=== PATIENT | male | born 1990 | race Caucasian/White ===

== ENCOUNTER 2021-07-05 12:23 | Inpatient (IN) | payer OTHER ==
[2021-07-05 15:00] VITALS: BMI 20.9
[2021-07-05] MEDS ORDERED: diazePAM 5 MG TABLET PO ONE (15:18)
[2021-07-05] MEDS ORDERED: MAGNESIUM HYDROX 2400MG/30ML ORAL SUSPENSION 30 ML CUP PO PRN (15:18)
[2021-07-05] MEDS ORDERED: ACETAMINOPHEN 325 MG TABLET (FP) PO PRN ×2 (15:18)
[2021-07-05] MEDS ORDERED: LOPERAMIDE HCL 2 MG CAPSULE PO PRN (15:18)
[2021-07-05] MEDS ORDERED: MAGNESIUM CITRATE 300 ML BOTTLE PO PRN (15:18)
[2021-07-05] MEDS ORDERED: NICOTINE POLACRILEX 2 MG GUM BUC PRN (15:18)
[2021-07-05] MEDS ORDERED: MELATONIN 5 MG TABLETS PO PRN (15:18)
[2021-07-05] MEDS ORDERED: BENZOCAINE/MENTHOL (CHLORASEPTIC ) LOZENGE MM PRN (15:18)
[2021-07-05] MEDS ORDERED: methaDONE HCL 10 MG TABLET (FOR DETOX USE ONLY) PO ONE (15:18)
[2021-07-05] MEDS ORDERED: MAG HYDROX/AL HYDROX/SIMETH 30 ML UNIT-DOSE CUP PO PRN (15:18)
[2021-07-05] MEDS ORDERED: DICYCLOMINE HCL 10 MG CAPSULE PO PRN (15:18)
[2021-07-05] MEDS ORDERED: cloNIDine HCL 0.1 MG TABLET PO PRN (15:18)
[2021-07-05] MEDS ORDERED: ONDANSETRON *ODT* 4 MG TABLET SL PRN (15:18)
[2021-07-05] MEDS ORDERED: IBUPROFEN 400 MG TABLET (FP) PO PRN ×2 (15:18→21:36)
[2021-07-05] MEDS ORDERED: BISMUTH SUBSALICYLATE 524 MG/30 ML PO PRN (15:18)
[2021-07-05] MEDS: METHOCARBAMOL 500 MG TABLET PO PRN ×2 (15:59→22:30)
[2021-07-05] MEDS: diazePAM 5 MG TABLET PO SCH ×2 (17:50→22:32)
[2021-07-05] MEDS: THIAMINE HCL 100 MG TABLET (FP) PO SCH (22:29)
[2021-07-06] MEDS: diazePAM 5 MG TABLET PO PRN ×2 (03:22→21:07)
[2021-07-06] MEDS: diazePAM 5 MG TABLET PO SCH ×4 (05:31→23:20)
[2021-07-06] MEDS ORDERED: methaDONE HCL 10 MG TABLET (FOR DETOX USE ONLY) ONE (09:31)
[2021-07-06] MEDS: PRENATAL VITAMINS W/ FOLIC ACID TABLET (FP) PO SCH (10:15)
[2021-07-06] MEDS: METHOCARBAMOL 500 MG TABLET PO PRN (10:17)
[2021-07-06] MEDS: NICOTINE 10 MG CARTRIDGE (INHALER) IH PRN ×2 (11:26→15:58)
[2021-07-06 12:35] LABS: HEMATOCRIT 45.4 % (35.4-49); HEMOGLOBIN 15.3 GM/dL (11.7-16.9); MCH 30.5 pg (25.7-33.7); MCHC 33.7 g/dl (32.0-35.9); MEAN CELL VOLUME 90.6 fl (80-96); MEAN PLT VOLUME 8.5 fl (7.5-11.1); PLATELET COUNT 245 10^3/uL (134-434); RDW 13.6 % (11.9-15.9); WHITE BLOOD COUNT 8.9 K/mm3 (4.0-10.0)
[2021-07-06 13:07] LABS: BLOOD UREA NITROGEN 7.7 mg/dL (7-18)
[2021-07-06 13:08] LABS: ALBUMIN 4.3 g/dl (3.4-5.0); CREATININE 0.9 mg/dL (0.55-1.3)
[2021-07-06 13:10] LABS: BILIRUBIN,TOTAL 0.5 mg/dL (0.2-1); CALCIUM 9.9 mg/dL (8.5-10.1); TOT PROT 7.8 g/dl (6.4-8.2)
[2021-07-06] MEDS: THIAMINE HCL 100 MG TABLET (FP) PO SCH (21:07)
[2021-07-06] MEDS ORDERED: MELATONIN 5 MG TABLETS PO SCH (22:00)
[2021-07-07] MEDS: diazePAM 5 MG TABLET PO SCH ×2 (05:45→13:15)
[2021-07-07] MEDS: METHOCARBAMOL 500 MG TABLET PO PRN ×2 (05:47→10:55)
[2021-07-07] MEDS ORDERED: methaDONE HCL 10 MG TABLET (FOR DETOX USE ONLY) PO ONE (10:00)
[2021-07-07] MEDS: PRENATAL VITAMINS W/ FOLIC ACID TABLET (FP) PO SCH (10:05)
[2021-07-07] MEDS: diazePAM 5 MG TABLET PO PRN (10:06)
[2021-07-07] MEDS: hydrOXYzine PAMOATE 25 MG CAPSULE (FP) PO PRN ×2 (10:06→13:16)
[2021-07-07] MEDS: NICOTINE 10 MG CARTRIDGE (INHALER) IH PRN (10:10)
[2021-07-07] MEDS ORDERED: NICOTINE 10 MG CARTRIDGE (INHALER) IH ONE (11:30)
[2021-07-07 16:08] LABS: SARS-CoV-2 NAA Not Detected (Not Detected)
[2021-07-07 17:19] VITALS: BP 113/66; PULSE 84; TEMP 98
[2021-07-07] MEDS ORDERED: SUVOREXANT 10 MG TABLET PO PRN (22:00)
[2021-07-08] MEDS ORDERED: diazePAM 5 MG TABLET PO SCH (06:00)
[2021-07-09] MEDS ORDERED: diazePAM 5 MG TABLET PO ONE (06:00)
[2021-07-09] MEDS ORDERED: methaDONE HCL 10 MG TABLET (FOR DETOX USE ONLY) PO ONE (10:00)
== END 2021-07-07 18:39 | disposition left against medical advice (07) | DRG 770 ==
LOC: YASAS 12:23 → Y6N 14:21
PROVIDERS: ADMIT Neuromusculoskeletal Medicine & OMM; ATTEND Neuromusculoskeletal Medicine & OMM
PROC: HZ2ZZZZ Detoxification Services for Substance Abuse Treatment (ICD-10-PCS; principal; 2021-07-05)
DX: F11.23 Opioid dependence with withdrawal (principal); F13.230 Sedative, hypnotic or anxiolytic dependence with withdrawal, uncomplicated; F12.20 Cannabis dependence, uncomplicated; F17.210 Nicotine dependence, cigarettes, uncomplicated; F19.280 Other psychoactive substance dependence with psychoactive substance-induced anxiety disorder; F19.282 Other psychoactive substance dependence with psychoactive substance-induced sleep disorder; F18.24 Inhalant dependence with inhalant-induced mood disorder; Z98.890 Other specified postprocedural states; Z56.0 Unemployment, unspecified
CPT/HCPCS: 36415; 80053; 85027; 86780; 93005; 93010; C9803-CS; J0735; U0003; U0005

== ENCOUNTER 2022-06-02 08:05 | Emergency (ER) | payer OTHER ==
[2022-06-02 08:14] VITALS: BP 116/63; PULSE 70; RESP 16; TEMP 98.4; BMI 20.9
[2022-06-02] MEDS ORDERED: IBUPROFEN 600 MG TABLET (FP) PO ONE ×2 (09:58→10:00)
== END 2022-06-02 10:10 | disposition home or self-care (01) ==
LOC: JERFT 08:05
DX: N62 Hypertrophy of breast (principal)
CPT/HCPCS: 76642-TC-LT; 99284-25

== ENCOUNTER 2022-06-10 13:00 | Emergency (ER) | payer OTHER ==
[2022-06-10 13:12] VITALS: RESP 18; BMI 24.2
[2022-06-10] MEDS ORDERED: ONDANSETRON 4 MG/2 ML VIAL IVPUSH ONE (14:37)
[2022-06-10] MEDS ORDERED: ACETAMINOPHEN 1000 MG/100 ML BAG IVPB ONE (14:37)
[2022-06-10] MEDS ORDERED: SODIUM CHLORIDE 1,000 ML IV STA (14:37)
[2022-06-10] MEDS ORDERED: ACETAMINOPHEN INJECTION 100 ML IVPB ONE (14:48)
[2022-06-10] MEDS ORDERED: ONDANSETRON 4 MG/2 ML VIAL ONE (14:48)
[2022-06-10] MEDS ORDERED: chlordiazePOXIDE HCL 25 MG CAPSULE PO ONE (15:09)
[2022-06-10] MEDS ORDERED: chlordiazePOXIDE HCL 25 MG CAPSULE ONE (15:24)
[2022-06-10 15:40] LABS: BASO % 0.2 % (0-2.0); HEMATOCRIT 44.8 % (35.4-49); HEMOGLOBIN 15.7 GM/dL (11.7-16.9); LYMPH % 11.8 % (8-40); MCH 31.2 pg (25.7-33.7); MCHC 35.1 g/dl (32.0-35.9); MEAN PLT VOLUME 9.4 fl (7.5-11.1); MONO % 8.1 % (3.8-10.2); NEUT % 79.9 % (42.8-82.8); PLATELET COUNT 247 10^3/uL (134-434); RBC 5.03 M/mm3 (4.00-5.60); RDW 14.6 % (11.9-15.9); WHITE BLOOD COUNT 12.4 K/mm3 (4.0-10.0)
[2022-06-10 16:05] LABS: CHLORIDE 102 mmol/L (98-107); SODIUM 139 mmol/L (136-145)
[2022-06-10 16:08] LABS: ALBUMIN 5.3 g/dl (3.4-5.0); ANION GAP 10 MMOL/L (8-16); BLOOD UREA NITROGEN 46.2 mg/dL (7-18); CALCIUM 10.8 mg/dL (8.5-10.1); CO2 26 mmol/L (21-32); GLUCOSE,RANDOM 118 mg/dL (74-106); LIPASE 56 U/L (73-393); MAGNESIUM 2.8 mg/dL (1.8-2.4)
[2022-06-10 16:11] LABS: CREATININE 1.3 mg/dL (0.55-1.3); SGOT/AST 8 U/L (15-37); SGPT/ALT 19 U/L (13-61)
[2022-06-10 16:13] LABS: BILIRUBIN,TOTAL 0.5 mg/dL (0.2-1); TOT PROT 9.4 g/dl (6.4-8.2)
[2022-06-10 16:14] LABS: ALK PHOS 114 U/L (45-117)
[2022-06-10 18:08] LABS: EPI CELLS 5 /uL (0-25.1); HYALINE CASTS 2 /uL (0-3.1); PH,URINE 5.5 (5.0-8.0); URINE APPEARANCE CLEAR; URINE BACTERIA 9 /uL (0-1359); URINE BILIRUBIN NEGATIVE (NEGATIVE); URINE COLOR YELLOW; URINE GLUCOSE (UA) NEGATIVE (NEGATIVE); URINE KETONE TRACE (NEGATIVE); URINE LEUK ESTERASE NEGATIVE (NEGATIVE); URINE NITRITE NEGATIVE (NEGATIVE); URINE PROTEIN 1+ (NEGATIVE); URINE RBC 18 /uL (0-23.9); URINE UROBILINOGEN 0.2 mg/dL (0.2-1.0); URINE WBC 7 /uL (0-25.8)
[2022-06-10 18:13] LABS: COCAINE, UR NEGATIVE (NEGATIVE); OPIATES, URI NEGATIVE (NEGATIVE); PHENCYCLIDINE,URINE NEGATIVE (NEGATIVE); URINE BARBITURATES NEGATIVE (NEGATIVE); URINE BENZODIAZEPINES NEGATIVE (NEGATIVE)
[2022-06-10 18:14] LABS: URINE AMPHETAMINES NEGATIVE (NEGATIVE)
[2022-06-10 18:16] LABS: METHADONE, UR NEGATIVE (NEGATIVE)
[2022-06-11 11:21] VITALS: BP 138/78; PULSE 78; TEMP 98.2
== END 2022-06-11 11:48 | disposition home or self-care (01) ==
LOC: JER 13:00
PROC: 3E033NZ Introduction of Analgesics, Hypnotics, Sedatives into Peripheral Vein, Percutaneous Approach (ICD-10-PCS; principal; 2022-06-10)
PROC: 3E033GC Introduction of Other Therapeutic Substance into Peripheral Vein, Percutaneous Approach (ICD-10-PCS; 2022-06-10)
PROC: 3E0337Z Introduction of Electrolytic and Water Balance Substance into Peripheral Vein, Percutaneous Approach (ICD-10-PCS; 2022-06-10)
DX: F60.0 Paranoid personality disorder (principal); F12.90 Cannabis use, unspecified, uncomplicated; F13.239 Sedative, hypnotic or anxiolytic dependence with withdrawal, unspecified; R10.31 Right lower quadrant pain; R11.2 Nausea with vomiting, unspecified; Z20.822 Contact with and (suspected) exposure to COVID-19
CPT/HCPCS: 0241U-QW; 36415; 70450-TC; 74177-TC; 80053; 80307; 81003; 83690; 83735; 84436; 84443; 84479; 84481; 84484; 85025; 87086; 93005; 93010; 99285-25; Q9967

== ENCOUNTER 2023-08-23 07:37 | Emergency (ER) | payer OTHER ==
[2023-08-23 07:47] VITALS: BP 136/78; PULSE 110; RESP 18; TEMP 98.3; BMI 23.3
[2023-08-23] MEDS ORDERED: ACETAMINOPHEN 325 MG TABLET (FP) ONE (08:58)
[2023-08-23] MEDS: ACETAMINOPHEN 500 MG TABLET (FP) PO ONE (09:00)
[2023-08-23] MEDS ORDERED: DIPHTH,PERTUSS(ACELL),TET 0.5 ML DISP.SYRIN IM ONE (09:22)
[2023-08-23] MEDS: DIPHTH,PERTUSS(ACELL),TET 0.5 ML DISP.SYRIN IM ONE (09:36)
[2023-08-23] MEDS ORDERED: KETOROLAC TROMETHAMINE 30 MG/1 ML VIAL ONE (10:16)
[2023-08-23] MEDS: KETOROLAC TROMETHAMINE 30 MG/1 ML VIAL IM ONE (10:26)
== END 2023-08-23 10:28 | disposition home or self-care (01) ==
LOC: JER 07:37
PROC: 0HQ0XZZ Repair Scalp Skin, External Approach (ICD-10-PCS; principal; 2023-08-23)
PROC: 3E0233Z Introduction of Anti-inflammatory into Muscle, Percutaneous Approach (ICD-10-PCS; 2023-08-23)
PROC: 3E0234Z Introduction of Serum, Toxoid and Vaccine into Muscle, Percutaneous Approach (ICD-10-PCS; 2023-08-23)
DX: S01.01XA Laceration without foreign body of scalp, initial encounter (principal); S00.83XA Contusion of other part of head, initial encounter; R11.10 Vomiting, unspecified; Y04.0XXA Assault by unarmed brawl or fight, initial encounter; Z23 Encounter for immunization
CPT/HCPCS: 12002-25; 70450-TC; 70486-TC; 90471; 90715; 96372; 99284-25